=== PATIENT | male | born 1975 | race Asian ===

== ENCOUNTER 2017-06-21 09:28 | Emergency (ER) | payer OTHER ==
[~2017-06-21] VITALS: Ht 170.2 cm; Wt 79.8 kg
[2017-06-21 09:42] VITALS: BP 143/85
--- NOTE | 2017-06-21 09:56 | ER.PDOC ---
General Chief Complaint: Cough/Congestion Stated Complaint: FLU LIKE SYMPTOMS Time seen by MD: 09:55 Source: patient Exam Limitations: no limitations History of Present Illness Initial Comments Flu like symptoms for 1 week Timing/Duration: gradual Severity: moderate Associated Symptoms: runny nose, sore throat, cough Allergies: Coded Allergies: No Known Allergies (Unverified , 06/21/17) Constitutional: no symptoms reported EENTM: see HPI Respiratory: see HPI Cardiovascular: no symptoms reported Gastrointestinal: no symptoms reported Genitourinary: no symptoms reported All Other Systems: Reviewed and Negative Past Medical History Medical History: asthma Surgical History: other Social History Smoking: non-smoker, quit less than 1 year Alcohol Use: none Drug Use: none Physical Exam General Appearance: alert, no distress Nose: rhinorrhea Throat: airway nml, pharyngeal erythema Neck: nml inspection, supple Respiratory: no resp.distress, breath sounds nml Abdomen: non-tender, no organomegaly CVS: reg rate & rhythm, heart sounds nml Skin: color nml, no rash, warm/dry Extremities: non-tender, nml ROM, no pedal edema NEURO/PSYCH: oriented x 3, CN's nml as tested, motor nml, sensation nml, mood/ affect nml Results/Orders Results/Orders Laboratory Tests Test 06/21/17 09:59 Influenza Type A Antigen NEGATIVE (NEG) Influenza B Immunofluorescence NEGATIVE (NEG) Group A Streptococcus Screen POSITIVE (NEGATIVE) Departure Time of Disposition: 10:56 Disposition: 01 HOME, SELF-CARE Impression: Primary Impression: Strep pharyngitis Additional Impression: Acute respiratory infection Condition: Stable Referrals: PCP,UNKNOWN (PCP) PRIMARY CARE PROVIDER Additional Instructions: Amoxil Mucinex DM OTC as directed Afrin nose drops OTC as directed for 5 days Chloraseptic spray OTC as directed for throat pain Ibuprofen F/U with PCP next week Duration or Time Spent with Pa: 60 mins MOE MORTENSEN MD Jun 21, 2017 09:56
[2017-06-21 10:22] LABS: STREP SCREEN POSITIVE (NEGATIVE)
[2017-06-21 11:19] VITALS: BP 143/85
== END 2017-06-21 11:14 | disposition home or self-care (01) ==
LOC: ER 09:28
DX: J02.0 Streptococcal pharyngitis (principal); J45.909 Unspecified asthma, uncomplicated; Z87.891 Personal history of nicotine dependence
CPT/HCPCS: 86710; 87880; 99284